=== PATIENT | female | born 1980 | race Two or more races ===

== ENCOUNTER 2018-07-25 19:51 | Emergency (ER) | payer MEDICAID ==
[~2018-07-25] VITALS: Ht 162.6 cm; Wt 75.0 kg
[2018-07-25] MEDS ORDERED: IBUPROFEN 600MG TABLET PO ONE (22:45)
[2018-07-25 23:00] VITALS: BP 128/78
== END 2018-07-25 23:02 | disposition home or self-care (01) ==
LOC: ER 19:51
DX: R04.0 Epistaxis (principal); R51 Headache
CPT/HCPCS: 81025; 99283

== ENCOUNTER 2018-08-27 08:23 | Emergency (ER) | payer MEDICAID ==
[~2018-08-27] VITALS: Ht 134.6 cm; Wt 74.0 kg
[2018-08-27] MEDS ORDERED: KETOROLAC 30MG/ML VIAL IV STA (09:47)
[2018-08-27 09:58] LABS: BASOPHILS % 0.3 % (0.0-2.0); EOSINOPHILS % 3.3 % (0.0-5.0); HEMATOCRIT. 36.8 % (36.0-48.0); HEMOGLOBIN. 12.2 g/dL (12.0-16.0); MEAN CORPUSCULAR HEMOGLOBIN 28.5 pg (28.0-32.0); MEAN CORPUSCULAR VOLUME 85.9 fL (81.0-99.0); MEAN PLATELET VOLUME 7.9 fl (7.4-10.4); MONOCYTES % 5.5 % (2.0-8.0); NEUTROPHILS % 55.9 % (40.0-76.0); PLATELET 373 x1000/uL (130-400); RED BLOOD CELL COUNT 4.28 mill/uL (4.2-5.4); RED CELL DISTRIBUTION WIDTH 13.8 % (11.6-14.6)
[2018-08-27 10:05] LABS: CHLORIDE 106 mEq/L (98-107)
[2018-08-27 10:06] LABS: INR 1.1; PROTHROMBIN TIME 10.6 sec (9.1-11.1)
[2018-08-27 10:54] VITALS: BP 102/57
== END 2018-08-27 10:56 | disposition home or self-care (01) ==
LOC: ER 09:05
DX: L03.114 Cellulitis of left upper limb (principal); L03.113 Cellulitis of right upper limb; Z90.89 Acquired absence of other organs; Z98.890 Other specified postprocedural states
CPT/HCPCS: 36415; 80053; 85025; 85610; 96374; 99283; J1885; Z7610

== ENCOUNTER 2019-06-07 23:12 | Emergency (ER) | payer MEDICAID ==
[~2019-06-07] VITALS: Ht 142.2 cm; Wt 78.6 kg
[2019-06-08] MEDS ORDERED: ONDANSETRON 4MG ODT PO ONE (00:30)
[2019-06-08] MEDS ORDERED: DIPHENHYDRAMINE 50MG/ML VIAL IM ONE (00:30)
[2019-06-08] MEDS ORDERED: PROCHLORPERAZINE 10MG/2ML VIAL IM ONE (00:30)
[2019-06-08] MEDS ORDERED: KETOROLAC 30MG/ML VIAL IM ONE (00:30)
[2019-06-08 02:51] VITALS: BP 105/47
== END 2019-06-08 02:52 | disposition home or self-care (01) ==
LOC: ER 23:12
DX: G44.209 Tension-type headache, unspecified, not intractable (principal); Z98.890 Other specified postprocedural states; Z90.49 Acquired absence of other specified parts of digestive tract
CPT/HCPCS: 96372; 99283; J0780; J1200; J1885; Q0162

== ENCOUNTER 2023-10-21 23:59 | Emergency (ER) | payer MEDICAID ==
[~2023-10-21] VITALS: Ht 134.6 cm; Wt 81.0 kg
[2023-10-22 00:15] VITALS: BP 137/78; PULSE 74; RESP 22; TEMP 98.3; O2SAT 99
[2023-10-22] MEDS ORDERED: CLAR10 MT (02:16)
[2023-10-22] MEDS ORDERED: IBUP-1525 MT (02:16)
[2023-10-22] MEDS ORDERED: DEXT30SU17 MT (02:16)
[2023-10-22] MEDS ORDERED: AZIT250T12 MT (02:16)
[2023-10-22] MEDS ORDERED: TOPUD MT (02:16)
== END 2023-10-22 02:22 | disposition home or self-care (01) ==
LOC: ER 23:59
DX: J02.9 Acute pharyngitis, unspecified (principal); R09.81 Nasal congestion; Z90.49 Acquired absence of other specified parts of digestive tract; Z98.890 Other specified postprocedural states
CPT/HCPCS: 99281; 99283